=== PATIENT | male | born 1990 | race Caucasian/White ===

== ENCOUNTER → 2016-04-01 | Outpatient (CLI) | payer OTHER ==
[~2016-04-01] MED LIST: CITA10TA4 PO; GABA300C19 PO; GDN20 PO; KLN1X PO; OMEP40CA41 PO; PRLSR20 PO; RISP3TAB3 PO; SRQ300 PO
[2016-04-01 14:39] LABS: BASO % 0.7 %; BASO ABS # 0.05 K/uL (0-0.2); COMPLETE YES; HEMATOCRIT 48.4 % (42-52); IG% 0.1 %; LYMPH % 21.8 %; LYMPH ABS # 1.51 K/uL (1.2-3.4); MEAN CELL VOLUME 84.9 fL (80-100); MEAN CORPUSCULAR HEMOGLOBIN 31.1 pg (25-34); MEAN CORPUSCULAR HGB CONC 36.6 g/dl (32-36); MEAN PLATELET VOLUME 9.8 fL (7.4-10.4); MONO % 4.5 %; NEUT % 69.9 %; PLATELET COUNT 231 K/uL (130-400); WHITE BLOOD COUNT 6.94 K/uL (4.8-10.8)
[2016-04-01 15:20] LABS: ALT/SGPT 41 U/L (12-78); AST/SGOT 20 U/L (15-37); BLOOD UREA NITROGEN 18 mg/dl (7-18); BUN/CREATININE RATIO 16.2 (10-20); CALCIUM 9.3 mg/dl (8.5-10.1); CARBON DIOXIDE 30 mmol/L (21-32); CHLORIDE 98 mmol/L (98-107); GLUCOSE 108 mg/dl (70-99); POTASSIUM 4.4 mmol/L (3.5-5.1); SODIUM 137 mmol/L (136-145)
[2016-04-01 15:22] LABS: BENZODIAZEPINE, URINE NEG (NEG); COCAINE,URINE NEG (NEG); PHENCYCLIDINE, URINE NEG (NEG)
[2016-04-01 15:30] LABS: ALB/GLOB RATIO 1.4 (0.9-2); ALKALINE PHOSPHATASE 63 U/L (45-117); THYROID STIMULATING HORMONE 0.602 uIu/ml (0.300-4.500)
== END | disposition home or self-care (01) ==
LOC: C.LAB 13:32
PROVIDERS: ATTEND Psychiatry & Neurology Psychiatry
DX: F90.9 Attention-deficit hyperactivity disorder, unspecified type (principal)

== ENCOUNTER 2016-04-03 02:17 | Emergency (ER) | payer OTHER ==
[~2016-04-03] VITALS: Ht 175.3 cm; Wt 65.5 kg
[~2016-04-03 02:17] MED LIST changes: -GDN20 PO; -OMEP40CA41 PO; -SRQ300 PO
[2016-04-03 02:20] VITALS: Ht 175.3 cm; Wt 65.5 kg
[2016-04-03 02:52] LABS: BASO % 0.9 %; BASO ABS # 0.06 K/uL (0-0.2); COMPLETE YES; EOS % 2.9 %; HEMATOCRIT 45.1 % (42-52); IG% 0.1 %; LYMPH ABS # 1.93 K/uL (1.2-3.4); MEAN CELL VOLUME 82.4 fL (80-100); MEAN CORPUSCULAR HEMOGLOBIN 30.5 pg (25-34); MEAN PLATELET VOLUME 9.5 fL (7.4-10.4); MONO % 5.5 %; NEUT % 62.6 %; PLATELET COUNT 213 K/uL (130-400); RED BLOOD COUNT 5.47 M/uL (4.7-6.1)
--- NOTE | 2016-04-03 03:03 | EMERGENCY ROOM VISIT NOTE ---
History Report prepared by Sigrid: Norberto Wells Under the Supervision of: Dr. Mimi Mendoza M.D. First contact with patient: 02:18 Stated Complaint: PANIC ATTACK History of Present Illness The patient is a 26 year old male who presents to the Emergency Room with complaints of a sudden panic attack occurring prior to arrival. The patient states that he was trying to go to sleep and he had a panic attack. The patient states that he was worried that he was not going to wake up because he has had a new medication change a few weeks ago. The patient denies drinking any alcohol or using any other drugs. The patient additionally complains of nausea and vomiting. He denies any diarrhea. The patient states that he was switched from Seroquel to Geodon, and he states that this medication has not helped him. The patient states that he has not been showering or brushing his teeth. He states that he has been eating and drinking. He states that he is having some thoughts of hurting himself, however he denies thoughts of hurting others. The mom states that the patient has been having thoughts for the past week that are telling him to kill himself. Source of History: patient, parent Onset: prior to arrival Position: other (global) Quality: other (panic attack) Timing: other (sudden) Associated Symptoms: + nausea, + vomiting, No diarrhea Review of Systems See HPI for pertinent positives & negatives. A total of 10 systems reviewed and were otherwise negative. Past Medical & Surgical Medical Problems: (1) Alcohol abuse (2) Cannabis abuse (3) Depression (4) Noncompliance with treatment Family History No pertinent family history Social History Smoking Status: Current Every Day Smoker Marital Status: single Housing Status: lives with family Occupation Status: unemployed Current/Historical Medications Scheduled Omeprazole (Prilosec), 40 MG PO QAM Quetiapine Fumarate (Quetiapine Fumarate), 300 MG PO HS Ziprasidone (Ziprasidone HCl), 20 MG PO BIDM Allergies Coded Allergies: No Known Allergies (Unverified , NONE, 04/03/16) Physical Exam Vital Signs Date Time Temp Pulse Resp B/P Pulse Ox O2 Delivery O2 Flow Rate FiO2 04/03/16 11:48 37.3 88 22 139/72 100 04/03/16 06:53 90 04/03/16 06:51 87 14 102/90 96 Room Air 04/03/16 04:23 89 18 124/73 99 Room Air 04/03/16 03:30 82 18 139/77 99 Room Air 04/03/16 03:30 88 04/03/16 02:20 36.6 91 18 142/57 99 Room Air Physical Exam Vital signs reviewed. General: Disheveled, malodorous. HEENT: No scleral icterus, PERRLA, neck supple. Atraumatic. Cardiovascular: Regular rate and rhythm, no extra sounds. Pulmonary: Clear to auscultation bilaterally, normal work of breathing. Abdomen: Soft, nontender, nondistended, positive bowel sounds. Musculoskeletal: Atraumatic, no peripheral edema. Neurologic: Patient awake alert and oriented x 3, full strength in all 4 extremities. Cranial nerves 2 through 12 grossly intact. Psych: Positive for auditory hallucinations, admits to suicidal thoughts but has no plan. No homicidal thoughts. Skin: Warm, dry, no rash Medical Decision & Procedures Laboratory Results 04/03/16 02:40 Red Blood Count 5.47, Mean Corpuscular Volume 82.4, Mean Corpuscular Hemoglobin 30.5, Mean Corpuscular Hemoglobin Concent 37.0, Mean Platelet Volume 9.5, Neutrophils (%) (Auto) 62.6, Lymphocytes (%) (Auto) 28.0, Monocytes (%) (Auto) 5.5, Eosinophils (%) (Auto) 2.9, Basophils (%) (Auto) 0.9, Neutrophils # (Auto) 4.32, Lymphocytes # (Auto) 1.93, Monocytes # (Auto) 0.38, Eosinophils # (Auto) 0.20, Basophils # (Auto) 0.06 04/03/16 02:40 Test 04/03/16 02:40 04/03/16 03:30 White Blood Count 6.90 K/uL (4.8-10.8) Red Blood Count 5.47 M/uL (4.7-6.1) Hemoglobin 16.7 g/dL (14.0-18.0) Hematocrit 45.1 % (42-52) Mean Corpuscular Volume 82.4 fL (80-100) Mean Corpuscular Hemoglobin 30.5 pg (25-34) Mean Corpuscular Hemoglobin Concent 37.0 g/dl (32-36) Platelet Count 213 K/uL (130-400) Mean Platelet Volume 9.5 fL (7.4-10.4) Neutrophils (%) (Auto) 62.6 % Lymphocytes (%) (Auto) 28.0 % Monocytes (%) (Auto) 5.5 % Eosinophils (%) (Auto) 2.9 % Basophils (%) (Auto) 0.9 % Neutrophils # (Auto) 4.32 K/uL (1.4-6.5) Lymphocytes # (Auto) 1.93 K/uL (1.2-3.4) Monocytes # (Auto) 0.38 K/uL (0.11-0.59) Eosinophils # (Auto) 0.20 K/uL (0-0.5) Basophils # (Auto) 0.06 K/uL (0-0.2) RDW Standard Deviation 38.3 fL (36.4-46.3) RDW Coefficient of Variation 12.7 % (11.5-14.5) Immature Granulocyte % (Auto) 0.1 % Immature Granulocyte # (Auto) 0.01 K/uL (0.00-0.02) Anion Gap 10.0 mmol/L (3-11) Est Creatinine Clear Calc Drug Dose 79.1 ml/min Estimated GFR () 86.7 Estimated GFR (Non- 74.8 BUN/Creatinine Ratio 15.5 (10-20) Calcium Level 9.5 mg/dl (8.5-10.1) Magnesium Level 2.1 mg/dl (1.8-2.4) Total Bilirubin 0.4 mg/dl (0.2-1) Direct Bilirubin 0.1 mg/dl (0-0.2) Aspartate Amino Transf (AST/SGOT) 17 U/L (15-37) Alanine Aminotransferase (ALT/SGPT) 36 U/L (12-78) Alkaline Phosphatase 58 U/L (45-117) Total Protein 7.8 gm/dl (6.4-8.2) Albumin 4.7 gm/dl (3.4-5.0) Lipase 180 U/L (73-393) Salicylates Level 2.0 mg/dl (2.8-20) Acetaminophen Level < 2 ug/ml (10-30) Ethyl Alcohol mg/dL < 3.0 mg/dl (0-3) Urine Color YELLOW Urine Appearance CLEAR (CLEAR) Urine pH 7.5 (4.5-7.5) Urine Specific [place] 1.008 (1.000-1.030) Urine Protein NEG (NEG) Urine Glucose (UA) NEG (NEG) Urine Ketones NEG (NEG) Urine Occult Blood NEG (NEG) Urine Nitrite NEG (NEG) Urine Bilirubin NEG (NEG) Urine Urobilinogen NEG (NEG) Urine Leukocyte Esterase NEG (NEG) Urine Opiates Screen NEG (NEG) Urine Methadone, Qualitative NEG (NEG) Urine Barbiturates NEG (NEG) Urine Phencyclidine (PCP) Level NEG (NEG) Ur Amphetamine/Methamphetamine NEG (NEG) MDMA (Ecstasy) Screen NEG (NEG) Urine Benzodiazepines Screen NEG (NEG) Urine Cocaine Metabolite NEG (NEG) Urine Marijuana (THC) NEG (NEG) Laboratory results per my review. ECG Indication: other (panic attack) Rate (beats per minute): 123 Rhythm: sinus tachycardia Findings: no acute ischemic change, no ectopy ED Course 0218: Past medical records reviewed. The patient was evaluated in room B6. A complete history and physical examination was performed. 0230: I spoke with the family preservation caseworker to evaluate the patient for mental health. 0342: I spoke with the patient's mom about the patient's case. She states that this has been going on for over a week and he has been hearing voices. 0551: I discussed the patient's case with the family preservation caseworker, and he agrees with plan for admission. 0730: The patient was signed out to Dr. Sullivan at the change of shift, awaiting placement. Medical Decision Differential diagnosis: mood disorder, infection, hypoglycemia, electrolyte abnormalities, cardiac sources, intracerebral event, toxicologic, neurologic, as well as others were entertained. This pt was evaluated and appeared to be in no distress. Pt was medically cleared and evaluated by mental health. Pt was recommended for inpt management for which he agrees. A bed search was underway and case was s/o to Dr Sullivan at the change of shift. He will return to the ED for worsening of symptoms or any medical concerns. Impression Primary Impression: Mood disorder Additional Impression: Hallucination Scribe Attestation The scribe's documentation has been prepared under my direction and personally reviewed by me in its entirety. I confirm that the note above accurately reflects all work, treatment, procedures, and medical decision making performed by me. Departure Information Referrals Eric Gates D.O. (PCP) Problem Qualifiers
[2016-04-03] MEDS ORDERED: OMEP40CA41 PO (03:04)
[2016-04-03] MEDS ORDERED: GDN20 PO (03:04)
[2016-04-03] MEDS ORDERED: SRQ300 PO (03:04)
[2016-04-03 03:10] LABS: BUN/CREATININE RATIO 15.5 (10-20); CALCIUM 9.5 mg/dl (8.5-10.1); CREATININE 1.3 mg/dl (0.60-1.40); MAGNESIUM 2.1 mg/dl (1.8-2.4); POTASSIUM 4.1 mmol/L (3.5-5.1)
[2016-04-03 03:26] LABS: ACETAMINOPHEN < 2 ug/ml (10-30)
[2016-04-03 03:37] LABS: URINE APPEARANCE CLEAR (CLEAR); URINE BILIRUBIN NEG (NEG); URINE COLOR YELLOW; URINE NITRITE NEG (NEG); URINE PH 7.5 (4.5-7.5); URINE SPECIFIC GRAVITY 1.008 (1.000-1.030); UROBILINOGEN NEG (NEG); ZZUR CULT IF INDIC CLEAN CATCH NO
[2016-04-03 03:38] LABS: MANUAL MICROSCOPIC REQUIRED? NO; REVIEW REQ? NO
[2016-04-03 03:55] LABS: BENZODIAZEPINE, URINE NEG (NEG); COCAINE,URINE NEG (NEG); PHENCYCLIDINE, URINE NEG (NEG)
[2016-04-03 11:48] VITALS: BP 139/72; PULSE 88; TEMP 37.3; O2SAT 100
== END 2016-04-03 12:15 ==
LOC: EDBD 02:17 → C.EDB 02:17 → C.EDA 12:15
DX: F39 Unspecified mood [affective] disorder (principal); R44.3 Hallucinations, unspecified; F17.210 Nicotine dependence, cigarettes, uncomplicated; Z79.899 Other long term (current) drug therapy

== ENCOUNTER 2017-10-17 06:41 | Emergency (ER) | payer OTHER ==
[~2017-10-17] VITALS: Ht 175.3 cm; Wt 70.0 kg
[2017-10-17 06:41] VITALS: TEMP 37.6; Ht 175.3 cm; Wt 70.0 kg
[~2017-10-17 06:41] MED LIST changes: -CITA10TA4 PO; -GABA300C19 PO; +GDN20 PO; -KLN1X PO; +OMEP40CA41 PO; -PRLSR20 PO; -RISP3TAB3 PO; +SRQ300 PO
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
[2017-10-17 07:12] LABS: BASO % 0.3 %; BASO ABS # 0.04 K/uL (0-0.2); EOS % 1.1 %; EOS ABS # 0.14 K/uL (0-0.5); HEMOGLOBIN 16.7 g/dL (14.0-18.0); IG# 0.05 K/uL (0.00-0.02); LYMPH % 16.3 %; LYMPH ABS # 2.17 K/uL (1.2-3.4); MEAN CELL VOLUME 88.2 fL (80-100); MEAN CORPUSCULAR HEMOGLOBIN 31.3 pg (25-34); MEAN CORPUSCULAR HGB CONC 35.5 g/dl (32-36); MEAN PLATELET VOLUME 10.2 fL (7.4-10.4); MONO % 7.4 %; MONO ABS # 0.98 K/uL (0.11-0.59); NEUT % 74.5 %; NEUT ABS # 9.94 K/uL (1.4-6.5); PLATELET COUNT 261 K/uL (130-400); RED CELL DISTRIBUTION WIDTH SD 41.4 fL (36.4-46.3); WHITE BLOOD COUNT 13.32 K/uL (4.8-10.8)
[2017-10-17 07:42] LABS: ALBUMIN 4.8 gm/dl (3.4-5.0); ALKALINE PHOSPHATASE 68 U/L (45-117); ALT/SGPT 38 U/L (12-78); AST/SGOT 81 U/L (15-37); BLOOD UREA NITROGEN 9 mg/dl (7-18); CALCIUM 8.9 mg/dl (8.5-10.1); CARBON DIOXIDE 22 mmol/L (21-32); GLUCOSE 105 mg/dl (70-99); POTASSIUM 3.7 mmol/L (3.5-5.1); SODIUM 139 mmol/L (136-145); TOTAL PROTEIN 8.2 gm/dl (6.4-8.2)
[2017-10-17 19:23] VITALS: BP 145/93; PULSE 95; O2SAT 97
[2017-10-18] MEDS ORDERED: NICOTINE 7 MG/24 HR TDSY TD SCH (09:00)
== END 2017-10-17 19:22 | disposition home or self-care (01) ==
LOC: EDBD 06:41 → C.EDA 06:42
DX: F32.9 Major depressive disorder, single episode, unspecified (principal); F17.210 Nicotine dependence, cigarettes, uncomplicated; Z91.19 Patient's noncompliance with other medical treatment and regimen; F12.10 Cannabis abuse, uncomplicated; F10.120 Alcohol abuse with intoxication, uncomplicated; Y90.8 Blood alcohol level of 240 mg/100 ml or more